=== PATIENT | male | born 2000 | race Caucasian/White ===

== ENCOUNTER 2019-11-01 00:45 | Emergency (ER) | payer OTHER ==
[2019-11-01 00:54] VITALS: RESP 18; TEMP 97.1
[2019-11-01 01:41] LABS: Basophils % (A) 0 %; Eosinophils # (A) 0.1 k/uL (0-0.7); Eosinophils % (A) 1 %; HCT 50.5 % (39.0-53.0); HGB 16.5 gm/dL (13.0-17.5); Lymphocytes % (A) 19 %; MCH 28.5 pg (25.0-35.0); MCHC 32.7 g/dL (31.0-37.0); MCV 87.1 fL (80.0-100.0); Mean Platelet Volume 8.4; Monocytes # (A) 0.8 k/uL (0-1.0); Monocytes % (A) 8 %; Neutrophils # (A) 7.4 k/uL (1.3-7.7); Neutrophils % (A) 70 %; Platelet Count 163 k/uL (150-450); RDW 12.1 % (11.5-15.5); WBC 10.6 k/uL (4.0-11.0)
[2019-11-01 01:52] LABS: ALT 17 U/L (4-49); AST 27 U/L (17-59); African American GFR (CKD) >90 (>60 ml/min/1.73 sqM); Albumin 4.9 g/dL (3.5-5.0); Alkaline Phosphatase 90 U/L (38-126); Amylase 52 U/L (30-110); Anion Gap 8 mmol/L; Blood Urea Nitrogen 11 mg/dL (9-20); Carbon Dioxide 31 mmol/L (22-30); Chloride 101 mmol/L (98-107); Glucose 91 mg/dL (74-99); Non-African American GFR(CKD) >90 (>60 ml/min/1.73 sqM); Potassium 3.7 mmol/L (3.5-5.1); Sodium 140 mmol/L (137-145); Total Bilirubin 0.3 mg/dL (0.2-1.3); Total Protein 8.3 g/dL (6.3-8.2)
[2019-11-01] MEDS ORDERED: IOPAMIDOL CONTRAST (ORAL USE) VIAL PO PRN (02:26)
[2019-11-01] MEDS ORDERED: SODIUM CHLORIDE 0.9% 1,000 ML IV ONE (02:27)
[2019-11-01 02:36] LABS: Appearance,Urine Clear (Clear); Bilirubin,Urine Negative (Negative); Blood,Urine Negative (Negative); Color,Urine Light Yellow; Glucose,Urine (UA) Negative (Negative); Ketones,Urine Negative (Negative); Leukocyte Esterase,Urine Negative (Negative); Nitrite,Urine Negative (Negative); Protein,Urine Negative (Negative); Specific Gravity,Urine 1.013 (1.001-1.035); Urobilinogen,Urine <2.0 mg/dL (<2.0)
[2019-11-01] MEDS ORDERED: MORPHINE SULFATE 4 MG/ML SYRINGE IV STA (03:27)
--- NOTE | 2019-11-01 04:42 | CT ---
EXAMINATION TYPE: CT abdomen pelvis w con DATE OF EXAM: 11/01/2019 COMPARISON: None HISTORY: RLQ pain after appendectomy [address] DLP: 591.90 mGycm Automated exposure control for dose reduction was used. CONTRAST: Performed with IV Contrast, patient injected with 100 mL of Isovue 300. Multiple axial sections were obtained from the diaphragm to the floor the pelvis with oral and intrav enous contrast. Lung bases are clear. There is no pleural effusion. Heart appears normal. Liver spleen stomach pancreas gallbladder appear normal. Bile ducts are not dilated. There is no adrenal mass. Kidneys show satisfactory contrast opacification. There is no hydronephrosi s. Delayed images show normal renal excretion. There is no retroperitoneal adenopathy. Bladder disten ds smoothly. There is no inguinal hernia. There is no free fluid in the pelvis. I see no definite xiang e fluid in the abdomen. There is no evidence of a bowel obstruction. There is no mesenteric edema. Th ere is no ascites. There is tiny amount of pneumoperitoneum consistent with recent surgery. Lumbar vertebra have normal spacing and alignment. Posterior elements are intact. Bony pelvis is inta ct. The cecum appears normal. Terminal ileum appears normal. IMPRESSION: Negative exam. I do not see a cause for right sided pain. Small pneumoperitoneum consistent with rece nt surgery.
--- NOTE | 2019-11-01 05:34 | ED ---
General Adult HPI - General Chief complaint: Chest Pain Stated complaint: Post Op Abd Pain Time Seen by Provider: 11/01/19 00:58 Source: patient Limitations: no limitations - History of Present Illness Initial comments: This patient is 19-year-old man who presents to have evaluation for right-sided abdominal pain. The patient had laparoscopic appendectomy performed at [facility] 6 days ago. He states that when he was discharged she was warned that sometimes there is some leakage from the site of the appendectomy. The patient states that he started having pain tonight and then he became concerned that there may be some leakage into his abdomen. Patient had not noted any fever or chills. No change in bowel movements. No change in urination. He has had a little bit of nausea but denies vomiting. He is tolerating oral intake. -: hour(s) Location: abdomen Radiation: non-radiation Quality: aching Consistency: constant Improves with: none Worsens with: none Associated Symptoms: denies other symptoms - Related Data Allergies Allergy/AdvReac Type Severity Reaction Status Date / Time No Known Allergies Allergy Verified 11/01/19 00:54 Review of Systems ROS Statement: Those systems with pertinent positive or pertinent negative responses have been documented in the HPI. ROS Other: All systems not noted in ROS Statement are negative. Constitutional: Denies: fever, chills Respiratory: Denies: cough, dyspnea Cardiovascular: Denies: chest pain, palpitations, edema, syncope Gastrointestinal: Reports: as per HPI, abdominal pain, nausea. Denies: vomiting, diarrhea, constipation, hematochezia Genitourinary: Denies: dysuria, hematuria, testicular pain, testicular mass Musculoskeletal: Denies: back pain Skin: Denies: rash Neurological: Denies: headache, weakness, numbness Past Medical History History of Any Multi-Drug Resistant Organisms: None Reported Past Surgical History: Appendectomy Additional Past Surgical History / Comment(s): Appendectomy 10/28/2019 joan nick Smoking Status: Never smoker Past Alcohol Use History: None Reported Past Drug Use History: None Reported General Exam Limitations: no limitations General appearance: alert, in no apparent distress Head exam: Present: atraumatic, normocephalic Eye exam: Present: normal appearance. Absent: scleral icterus, conjunctival injection ENT exam: Present: normal oropharynx Neck exam: Present: normal inspection Respiratory exam: Present: normal lung sounds bilaterally. Absent: respiratory distress, wheezes, rales, rhonchi, stridor Cardiovascular Exam: Present: regular rate, normal rhythm, normal heart sounds. Absent: systolic murmur, diastolic murmur, rubs, gallop GI/Abdominal exam: Present: soft, tenderness, normal bowel sounds, other (The patient's surgical incisions are clean dry and intact. There is a small amount of localized ecchymosis at surgical incision site. There is some mild right- sided abdominal tenderness without rebound or guarding.). Absent: distended, guarding, rebound, rigid, mass, pulsatile mass, hernia exam: Present: normal inspection Extremities exam: Present: normal inspection, normal capillary refill. Absent: pedal edema, calf tenderness Back exam: Present: normal inspection. Absent: CVA tenderness (R), CVA tenderness (L) Neurological exam: Present: alert Skin exam: Present: warm, dry, intact, normal color. Absent: rash Course Vital Signs 11/01/19 11/01/19 11/01/19 00:48 02:37 05:40 Temperature 97.1 F L Pulse Rate 75 67 70 Respiratory 18 18 18 Rate Blood Pressure 144/92 140/95 130/78 O2 Sat by Pulse 98 100 98 Oximetry Medical Decision Making - Medical Decision Making Patient is 19-year-old man nearly one week following laparoscopic appendectomy. He did have some right-sided abdominal tenderness and we discussed watchful waiting versus imaging and he does request to have imaging performed which per radiology does not reveal obvious pathology. The patient was feeling much better after his course in emergency department. He is tolerating oral intake. He does want to go home and have appropriate follow-up. Discussed return parameters. - Lab Data Result diagrams: 11/01/19 01:11/01/19 01:27 Lab Results 11/01/19 11/01/19 11/01/19 Range/Units 01:27 01: 01:27 WBC 10.6 (4.0-11.0) k/uL RBC 5.80 (4.30-5.90) m/uL Hgb 16.5 (13.0-17.5) gm/dL Hct 50.5 (39.0-53.0) % MCV 87.1 (80.0-100.0) fL MCH 28.5 (25.0-35.0) pg MCHC 32.7 (31.0-37.0) g/dL RDW 12.1 (11.5-15.5) % Plt Count 163 (150-450) k/uL Neutrophils % 70 % Lymphocytes % 19 % Monocytes % 8 % Eosinophils % 1 % Basophils % 0 % Neutrophils # 7.4 (1.3-7.7) k/uL Lymphocytes # 2.0 (1.0-4.8) k/uL Monocytes # 0.8 (0-1.0) k/uL Eosinophils # 0.1 (0-0.7) k/uL Basophils # 0.0 (0-0.2) k/uL Sodium 140 (137-145) mmol/L Potassium 3.7 (3.5-5.1) mmol/L Chloride 101 (98-107) mmol/L Carbon Dioxide 31 H (22-30) mmol/L Anion Gap 8 mmol/L BUN 11 (9-20) mg/dL Creatinine 0.74 (0.66-1.25) mg/dL Est GFR (CKD-EPI)AfAm >90 (>60 ml/min/1.73 sqM) Est GFR (CKD-EPI)NonAf >90 (>60 ml/min/1.73 sqM) Glucose 91 (74-99) mg/dL Plasma Lactic Acid Cristobal 1.5 (0.7-2.0) mmol/L Calcium 10.0 (8.4-10.2) mg/dL Total Bilirubin 0.3 (0.2-1.3) mg/dL AST 27 (17-59) U/L ALT 17 (4-49) U/L Alkaline Phosphatase 90 (38-126) U/L Total Protein 8.3 H (6.3-8.2) g/dL Albumin 4.9 (3.5-5.0) g/dL Amylase 52 (30-110) U/L Lipase 47 (23-300) U/L Urine Color Urine Appearance (Clear) Urine pH (5.0-8.0) Ur Specific Ferdinand (1.001-1.035) Urine Protein (Negative) Urine Glucose (UA) (Negative) Urine Ketones (Negative) Urine Blood (Negative) Urine Nitrite (Negative) Urine Bilirubin (Negative) Urine Urobilinogen (<2.0) mg/dL Ur Leukocyte Esterase (Negative) 11/01/19 Range/Units 01:50 WBC (4.0-11.0) k/uL RBC (4.30-5.90) m/uL Hgb (13.0-17.5) gm/dL Hct (39.0-53.0) % MCV (80.0-100.0) fL MCH (25.0-35.0) pg MCHC (31.0-37.0) g/dL RDW (11.5-15.5) % Plt Count (150-450) k/uL Neutrophils % % Lymphocytes % % Monocytes % % Eosinophils % % Basophils % % Neutrophils # (1.3-7.7) k/uL Lymphocytes # (1.0-4.8) k/uL Monocytes # (0-1.0) k/uL Eosinophils # (0-0.7) k/uL Basophils # (0-0.2) k/uL Sodium (137-145) mmol/L Potassium (3.5-5.1) mmol/L Chloride (98-107) mmol/L Carbon Dioxide (22-30) mmol/L Anion Gap mmol/L BUN (9-20) mg/dL Creatinine (0.66-1.25) mg/dL Est GFR (CKD-EPI)AfAm (>60 ml/min/1.73 sqM) Est GFR (CKD-EPI)NonAf (>60 ml/min/1.73 sqM) Glucose (74-99) mg/dL Plasma Lactic Acid Cristobal (0.7-2.0) mmol/L Calcium (8.4-10.2) mg/dL Total Bilirubin (0.2-1.3) mg/dL AST (17-59) U/L ALT (4-49) U/L Alkaline Phosphatase (38-126) U/L Total Protein (6.3-8.2) g/dL Albumin (3.5-5.0) g/dL Amylase (30-110) U/L Lipase (23-300) U/L Urine Color Light Yellow Urine Appearance Clear (Clear) Urine pH 7.0 (5.0-8.0) Ur Specific Ferdinand 1.013 (1.001-1.035) Urine Protein Negative (Negative) Urine Glucose (UA) Negative (Negative) Urine Ketones Negative (Negative) Urine Blood Negative (Negative) Urine Nitrite Negative (Negative) Urine Bilirubin Negative (Negative) Urine Urobilinogen <2.0 (<2.0) mg/dL Ur Leukocyte Esterase Negative (Negative) Disposition Clinical Impression: Abdominal pain Disposition: HOME SELF-CARE Condition: Good Instructions (If sedation given, give patient instructions): Abdominal Pain (ED) Additional Instructions: You were given one dose of morphine at the hospital today. Please note that this may cause urine drug screens to be positive for number of days following today. Is patient prescribed a controlled substance at d/c from ED?: No Referrals: Froilan Thomas DO [Primary Care Provider] - 1-2 days
[2019-11-01 05:43] VITALS: BP 130/78; PULSE 70
== END 2019-11-01 05:43 | disposition home or self-care (01) ==
LOC: EC 00:45
DX: R10.9 Unspecified abdominal pain (principal); G89.18 Other acute postprocedural pain; L76.32 Postprocedural hematoma of skin and subcutaneous tissue following other procedure; R11.0 Nausea; Z90.49 Acquired absence of other specified parts of digestive tract
CPT/HCPCS: 36415; 93005; 80053; 82150; 83605; 83690; 85025; 81003; 74177; 99285; 96374; 96361; J2270; Q9967

== ENCOUNTER 2020-02-28 17:15 | Emergency (ER) | payer OTHER ==
--- NOTE | 2020-02-28 18:40 | CT ---
EXAMINATION TYPE: CT brain bernard ordonez con DATE OF EXAM: 02/28/2020 COMPARISON: NONE HISTORY: Fall this morning. Right sided head injury. Headache, neck pain, dizziness, visual disturban ce and memory changes. CT DLP: 1333.2 mGycm. Automated Exposure Control for Dose Reduction was Utilized. TECHNIQUE: CT scan of the head and cervical spine are performed without contrast. FINDINGS: There is no acute intracranial hemorrhage, mass effect, or midline shift identified. The ventricles and sulci are within normal limits in size. Salcedo-white matter differentiation maintained. Low-lying cerebellar tonsils with right-sided tonsil felt to be extending greater than 5 mm into for amen magnum sagittal image 29. The globes are intact and the visualized sinuses are clear. The calvar ium is intact. Cervical spine is visualized in its entirety from C1 through upper thoracic levels and demonstrates s atisfactory alignment without evidence of acute fracture or dislocation. Prevertebral soft tissue ap pears within normal limits. The C1-C2 articulation is within normal limits on the coronal images. Ve rtebral body heights and disc space heights are maintained. Spinal canal grossly preserved. Lung apic es show no pneumothorax. Axial images unremarkable. IMPRESSION: 1. There is no acute fracture or dislocation evident in the cervical spine. 2. No acute intracranial hemorrhage or midline shift is seen. Suspect underlying Chiari type I malformation. Nonemergent follow-up advised.
--- NOTE | 2020-02-28 18:46 | XR ---
EXAMINATION TYPE: XR ribs RT w pa chest xray DATE OF EXAM: 02/28/2020 CLINICAL HISTORY: Chest and right-sided rib pain after fall injury. TECHNIQUE: Single frontal view of the chest is obtained. A frontal and oblique images of the right-si ded ribs. COMPARISON: None FINDINGS: There is no focal air space opacity, pleural effusion, or pneumothorax seen. The cardiac silhouette size is within normal limits. The osseous structures are intact. Dedicated images of right-sided ribs show no acute displaced fractures. Overlying soft tissue is unre markable. IMPRESSION: 1. No acute cardiopulmonary process. 2. No acute displaced right-sided rib fractures.
--- NOTE | 2020-02-28 19:58 | ED ---
General Adult HPI - General Chief complaint: Fall Stated complaint: fall, head injury Time Seen by Provider: 02/28/20 17:48 Source: patient, RN notes reviewed, old records reviewed Mode of arrival: ambulatory Limitations: no limitations - History of Present Illness Initial comments: 20-year-old male patient proceeded for chief complaint of a fall. Patient reports that he was walking down the stairs when it was dark when he stumbled and fell forward. Patient reports that he did hit his head on his descent bleeds he had a loss of consciousness of maximal 10 seconds. Patient reports that he then woke up and went to work today. He reports they've been having a right-sided headache and some neck stiffness. Also reports that his right ribs are hurting. However he states he broke ribs and his left side a few years ago and the pain is nor near his bed. Reports he has had some nausea without emesis. Denies any other complaints. Systemic: Pt denies fatigue, fever/chills, rash. Pt denies weakness, night sweats, weight loss. Neuro: Pt denies visual disturbances, syncope or pre-syncope. HEENT: Pt denies ocular discharge or irritation, otalgia, rhinorrhea, pharyngitis or notable lymphadenopathy. Cardiopulmonary: Pt denies chest pain, SOB, heart palpitations, dyspnea on exertion. Abdominal/GI: Pt denies abdominal pain, n/v/d. : Pt denies dysuria, burning w/ urination, frequency/urgency. Denies new onset urinary or bowel incontinence. MSK: Pt denies myalgia, loss of strength or function in extremities. Neuro: Pt denies new onset weakness, paresthesias. - Related Data Home Medications Medication Instructions Recorded Confirmed No Known Home Medications 02/28/20 02/28/20 Allergies Allergy/AdvReac Type Severity Reaction Status Date / Time No Known Allergies Allergy Verified 02/28/20 18:50 Review of Systems ROS Statement: Those systems with pertinent positive or pertinent negative responses have been documented in the HPI. ROS Other: All systems not noted in ROS Statement are negative. Past Medical History Past Medical History: No Reported History History of Any Multi-Drug Resistant Organisms: None Reported Past Surgical History: Appendectomy, Orthopedic Surgery Additional Past Surgical History / Comment(s): Right ankle sx Past Psychological History: No Psychological Hx Reported Smoking Status: Current every day smoker Past Alcohol Use History: None Reported Past Drug Use History: None Reported General Exam - General Exam Comments Initial Comments: Constitutional: NAD, AOX3, Pt has pleasant affect. HEENT: NC/AT, trachea midline, neck supple, no lymphadenopathy. Posterior pharynx non erythematous, without exudates. External ears appear normal, without discharge. Mucous membranes moist. Eyes PERRLA, EOM intact. There is no scleral icterus. No pallor noted. Cardiopulmonary: RRR, no murmurs, rubs or gallops, no JVD noted. Lungs CTAB in anterior and posterior keene. No peripheral edema. Abdominal exam: Abdomen soft and non-distended. Abdomen non-tender to palpation in all 4 quadrants. Bowel sounds active in LLQ. No hepatosplenomegaly. No ecchymosis Neuro: CN II-XII intact. No nuchal rigidity. No raccon eyes, no kevin sign, no hemotympanum. Mild amount of right paracervical tenderness. Repeat neurologic exam is intact. MSK: Very mild tenderness to right lateral rib region around The area of the ninth rib. No external skin changes. No posterior calf tenderness bilaterally, homans sign negative bilaterally. Posterior tibialis and radial pulse +2 bilaterally. Sensation intact in upper and lower extremities. Full active ROM in upper and lower extremities, 5/5 stregnth. Limitations: no limitations Course Vital Signs 02/28/20 17:25 Temperature 97.8 F Pulse Rate 60 Respiratory 18 Rate Blood Pressure 124/80 O2 Sat by Pulse 100 Oximetry Medical Decision Making - Medical Decision Making 20-year-old male patient proceeded for chief complaint of a fall. Patient reports that he was walking down the stairs when it was dark when he stumbled and fell forward. Patient reports that he did hit his head on his descent bleeds he had a loss of consciousness of maximal 10 seconds. Patient reports that he then woke up and went to work today. He reports they've been having a right-sided headache and some neck stiffness. Also reports that his right ribs are hurting. However he states he broke ribs and his left side a few years ago and the pain is nor near his bed. Reports he has had some nausea without emesis. Denies any other complaints. Pt VSS, afebrile. Physical exam displayed: CN II-XII intact. No nuchal rigidity. No raccon eyes, no kevin sign, no hemotympanum. Mild amount of right paracervical tenderness. Very mild tenderness to right lateral rib region around The area of the ninth rib. No external skin changes. CT brain and C-spine without contrast did not display any acute fracture dislocation in the cervical spine. No acute intracranial hemorrhage or midline shift is seen. Suspect underlying alan type I malformation. Nonemergent follow-up as advised. Plain film of right sided ribs with PA chest and display any acute cardiac ulnar process. No displaced right- sided rib fractures. Patient declining any analgesia while in ED. Will be discharged with starter pack of Tylenol 3 as well as Flexeril. Advised to take half pill of flexeril and to not take tylenol and muscle relaxer at the same time. Patient to follow with primary care provider and will get neurosurgery consult from them. Will ER if condition worsens. Case discussed with Dr. Lauren. Disposition Clinical Impression: Fall, Concussion, Chiari malformation type I Disposition: HOME SELF-CARE Condition: Stable Instructions (If sedation given, give patient instructions): Concussion (ED), Fall Prevention (ED) Additional Instructions: Follow-up with primary care provider tomorrow. Have primary care provider give you a neurosurgery referral for the chiari malformation. I'll provide you information for the concussion clinic to follow up with. If symptoms don't improve or worsen return to emergency department. Concussion Management Program A concussion is a mild traumatic brain injury. They can occur in a wide range of sports and affect all athletes, from professional players to little leaguers. [facility] has created an individualized program for concussion management, tailored to treat sports concussions in athletes of all ages. Our team of experts: Assess, manages and treats concussions in people of all ages Conductsbaseline pre-testing and post-concussion testing with [employer] Educates coaches and parents onconcussion avoidance and steps to follow in case of an injury Provides post-concussion rehabilitation Parents and coaches should contact a doctor immediately if an athlete is not acting normally, has lost consciousness for any amount of time, or if any other symptoms get worse or start up days or weeks later. Concussion Symptoms Blank stare Dizziness Responding slowly to questions Unawareness of surroundings Vomiting, even hours after the injury Confusion Slurred speech Stumbling when walking Ringing in the ears Loss of consciousness, even if only for a few seconds Contact Us: The [facility] Demolition Expert can help you or your athlete see a [facility] Supervisor Word [employer] for concussion management as soon as possible. Call anytime, at . Athletes should not return to their sport until symptoms have resolved and a doctor has cleared the athlete to participate in practice and games. Is patient prescribed a controlled substance at d/c from ED?: No Referrals: Froilan Thomas DO [Primary Care Provider] - 1-2 days
[2020-02-28] MEDS ORDERED: CYCLOBENZAPRINE 10MG STARTER 3 TAB BTL PO STA (20:06)
[2020-02-28] MEDS ORDERED: ACET/COD 300 MG/30 MG STARTER PACK 6 TAB BTL PO STA (20:06)
[2020-02-28 20:28] VITALS: BP 123/68; PULSE 62; RESP 16; TEMP 97.9
== END 2020-02-28 20:28 | disposition home or self-care (01) ==
LOC: EC 17:15
DX: S06.0X1A Concussion with loss of consciousness of 30 minutes or less, initial encounter (principal); G93.5 Compression of brain; R07.81 Pleurodynia; M54.2 Cervicalgia; F17.200 Nicotine dependence, unspecified, uncomplicated; W01.198A Fall on same level from slipping, tripping and stumbling with subsequent striking against other object, initial encounter; Y93.01 Activity, walking, marching and hiking; Y92.009 Unspecified place in unspecified non-institutional (private) residence as the place of occurrence of the external cause
CPT/HCPCS: 70450; 72125; 99284